=== PATIENT | male | born 1970 | race African-American/Black ===

== ENCOUNTER 2022-01-03 16:28 | Emergency (ER) | payer BC ==
[~2022-01-03] VITALS: Ht 170.2 cm; Wt 70.3 kg
[2022-01-03 16:28] VITALS: BP 152/90
[~2022-01-03 16:28] MED LIST: GABA-585 PO
[2022-01-03] MEDS ORDERED: KETOROLAC 60 MG/2 ML VIAL. IM ONE (17:15)
[2022-01-03] MEDS ORDERED: CYCL10TA19 PO (17:21)
[2022-01-03] MEDS ORDERED: IBUP-1007 PO (17:21)
[2022-01-03] MEDS ORDERED: PRED20TA PO (17:21)
[2022-01-03] MEDS ORDERED: LIDO700A21 TP (17:21)
--- NOTE | 2022-01-03 17:21 | PHYS DOC ---
Past Medical History Past Medical History: No Pertinent History Past Surgical History: No Surgical History Smoking Status: Never Smoker Alcohol Use: Rarely Drug Use: None General Adult EDM: Chief Complaint: BACK PAIN OR INJURY HPI: HPI: Patient is a 51-year-old male who presents to the emergency department co mplaining of ongoing left-sided low back pain that radiates into his buttocks down the back of his left thigh. Patient reports this has been going on for approximately a month or so, states he was seen at [facility] [address] weeks ago and had CT scanning completed, states he was told there were no broken bones, states he was referred to a primary care physician office, patient states he was unable to secure a timely appointment reporting it would be a month or longer before he could get into see a primary care physician. Patient reports he has ran out of his pain medications, and his pain is not getting much better. Patient currently reports a 8 out of 10 pain. Denies numbness or tingling to his genitals or buttocks, denies loss of bowel or bladder continence, denies bladder retention. Patient denies trauma to his back. Patient denies history of IV drug use, denies a history of immunosuppression or cancers. Denies recent fever or chills. Patient denies other physical complaints or physical concerns. Review of Systems: Review of Systems: 14 body systems of review of systems have been reviewed. See HPI for pertinent positives and negative responses, otherwise all other systems are negative, nonpertinent or noncontributory. Constitutional: Negative except as outlined in HPI above. Skin: Negative except as outlined in HPI above. Eyes: Negative except as outlined in HPI above. HENT: Negative except as outlined in HPI above. Respiratory: Negative except as outlined in HPI above. Cardiovascular: Negative except as outlined in HPI above. GI: Negative except as outlined in HPI above. : Negative except as outlined in HPI above. Musculoskeletal: Negative except as outlined in HPI above. Integument: Negative except as outlined in HPI above. Neurologic: Negative except as outlined in HPI above. Endocrine: Negative except as outlined in HPI above. Lymphatic: Negative except as outlined in HPI above. Psychiatric: Negative except as outlined in HPI above. Heart Score: C/O Chest Pain: No Risk Factors: Risk Factors: DM, Current or recent (<one month) smoker, HTN, HLP, family history of CAD, obesity. Risk Scores: Score 0 - 3: 2.5% MACE over next 6 weeks - Discharge Home Score 4 - 6: 20.3% MACE over next 6 weeks - Admit for Clinical Observation Score 7 - 10: 72.7% MACE over next 6 weeks - Early Invasive Strategies Allergies: Allergies: Allergies Coded Allergies Type Severity Reaction Last Updated Verified No Known Drug Allergies 03/14/16 No Physical Exam: PE: Constitutional: Well developed, well nourished, no acute distress, non-toxic appearance. 51-year-old male in no apparent distress. HENT: Normocephalic, atraumatic. Eyes: Conjunctiva normal, no discharge. Neck: Normal range of motion, no stridor. Cardiovascular: No cyanosis appreciated, distal cap refill less than 2 seconds. Lungs & Thorax: Patient is in no respiratory distress, no audible adventitious lung sounds appreciated. Abdomen: Nontender, no abnormalities noted. Skin: Warm, dry, no erythema, no rash. Back: No deformities present, no midline spinal tenderness, there is pain to palpation of the left lumbar muscular structures, no skin discoloration of the back appreciated, no left-sided or right-sided CVA TTP. Extremities: No tenderness, no cyanosis, no clubbing, ROM intact, no edema. 5/5 motor strength of the left hip flexion, knee flexion/extension/adduction, plantar/dorsiflexion at the ankle, dorsiflexion of the toes bilaterally. Neurologic: Alert and oriented X 3, normal motor function, normal sensory function, no focal deficits noted. Psychologic: Affect normal, judgement normal, mood normal. P Current Patient Data: Vital Signs: Vital Signs Date Time Temp Pulse Resp B/P (MAP) Pulse Ox O2 Delivery O2 Flow Rate FiO2 01/03/22 16:28 97.8 113 18 152/90 (110) 97 Room Air 97.8 EKG: EKG: [] Radiology/Procedures: Radiology/Procedures: [] Course & Med Decision Making: Course & Med Decision Making Pertinent Labs and Imaging studies reviewed. (See chart for details) 51-year-old male, vital signs reviewed, presents emergency department concerning ongoing exacerbation of his left-sided sciatica back pain. Physical examination reveals intact 5/5 motor strength with hip flexion, knee flexion,extension, knee adduction, plantar/dorsiflexion at the ankle, and dorsiflexion of the toe bilaterally. Additionally there was no hx of IVDU, Immunosuppression, cancer, fever/chills, saddle anesthesia, bowel/bladder incontinence/retention, or trauma that would necessitate emergent imaging. Will give pain medications, steroid therapy, strict follow-up with primary care, will give pain management referral, return to ER precautions and concerns were reviewed, patient gave verbal understanding of and is amenable to ED discharge planning. Discussed with the patient all findings and diagnostic testing as well as the need to follow-up with their primary care provider for further evaluation and treatment or return to the ED if any new or worsening symptoms. Strict return precautions were also discussed at length, the patient voiced understanding and agreement with the discharge planning. The patient was nontoxic in appearance, in no apparent distress, and hemodynamically stable at the time of disposition. Dragon Disclaimer: Dragon Disclaimer: This electronic medical record was generated, in whole or in part, using a voice recognition dictation system. Departure Departure Impression: Primary Impression: Lumbago Qualified Codes: M54.42 - Lumbago with sciatica, left side Disposition: HOME / SELF CARE / HOMELESS Condition: GOOD Referrals: NO PCP (PCP) LESLIE SAEED MD Patient Instructions: Back Exercises, Back Pain, Adult Additional Instructions: You were seen today in the emergency department for ongoing pain of your low back. As we discussed I am prescribing you an NSAID pain medication and a steroid to take, I have also given you a temporary muscle relaxer and lidocaine patches to help with your pain. I have attached information for low back exercises to help strengthen your low back to prevent return of back pain. I have attached a list of area healthcare providers for you to establish primary care with. I have also recommended a pain center physician, call tomorrow for an appointment to be seen for ongoing pain management. Thank you for visiting our Emergency Department. It was a pleasure taking care of you today in the emergency department and we appreciate you trusting us with your care. If any additional problems come up don't hesitate to return to visit us. Please follow up with your primary care provider so they can plan additional care if needed and know about the problem that you had. If symptoms worsen come back to the Emergency Department. Any concerning symptoms that start such as chest pain, shortness of air, weakness or numbness on one side of the body, running high fevers or any other concerning symptoms return to the ER. Demond [facility] [address] [place] [address] [facility] [address] [place] [address] [facility] [address] [facility] [place] [address] [facility] [address] [place] [address] [facility] [address] [place] [address] [address] [place] [address] [address] [place] [address] [facility] [address] [place] [address] [facility] [address] [place] [address] [facility] [address] [place] [address] Scripts Ibuprofen (IBUPROFEN) 600 Mg Tablet 600 MG PO PRN Q6HRS PRN for INFLAMMATION, #30 TAB 0 Refills Prov: STERLING LEAL APRN 01/03/22 Cyclobenzaprine Hcl (CYCLOBENZAPRINE HCL) 10 Mg Tablet 10 MG PO TID, #14 TAB 0 Refills Prov: STERLING LEAL APRN 01/03/22 Prednisone (PREDNISONE) 20 Mg Tablet 1 TAB PO UD, #15 TAB 0 Refills Take 2 tablets each day for days 1 through 5, then reduce to 1 tablet each day for days 6 through 10. Prov: STERLING LEAL APRN 01/03/22 Lidocaine (Lidocaine PATCH ) 1 Each Adh..patch 1 EACH TP DAILY for FOR LOCAL PAIN, #10 PATCH 0 Refills REMOVE AFTER 12 HOURS Prov: STERLING LEAL APRN 01/03/22 STERLING LEAL APRN Jan 03, 2022 17:21
[2022-01-03] MEDS ORDERED: TRIAMCINOLONE PRES.FREE 40 MG/ML VIAL. IM ONE (17:30)
[2022-01-03] MEDS ORDERED: HYDROcodone/APAP 5/325MG 1 TAB TABLET PO ONE (17:30)
== END 2022-01-03 17:34 | disposition home or self-care (01) ==
LOC: ER 16:28
DX: M54.42 Lumbago with sciatica, left side (principal)
CPT/HCPCS: 96372; 99284; J1885; J3301